=== PATIENT | female | born 1940 | race African-American/Black ===

== ENCOUNTER 2016-03-07 11:25 | Inpatient (IN) | payer OTHER, BC ==
[~2016-03-07] VITALS: Ht 172.7 cm; Wt 65.6 kg
--- NOTE | ~2016-03-07 | 2DMMODE ---
[facility] [place] [address] 2 D/M-MODE ECHOCARDIOGRAM Name: TRES HUANG Room #: 439-P [facility] IN [facility]#: [id number] Admission: 03/07/16 Attend Phys: Nathalie Peñaloza MD Discharge: Date of : 38 Date of Service: 03/08/16 0924 Report #: [id number] THIS REPORT FOR: //name// Transthoracic Echocardiography Ordering physician: Nathalie Peñaloza Referring physician: Mirta Rowan My N. Rugby League Footballer: MECHELLE Cantu Indications/History: TIA, HTN, HLP. BP: 139 / HR: 52bpm Height: 67in Weight: 143.7lb 95 Study data: M-mode, complete 2D, complete spectral Doppler, and color Doppler. Location: Echo laboratory. Routine. Image quality was good. The parasternal window was low, thus no M-mode measurements were recorded. Intravenous contrast (agitated saline) was administered. 2D measurements Normal Normal LVID ED 39.5mm 36-57 IVS ED 11.5mm 6-11 LVID ES 26.2mm 23-40 LVPW ED 12mm 6-11 LA volume 27ml/m2 16-28 AoRoot diam 27.3mm 21-37 index ED LVOT diameter 18-23 Findings: Left ventricle: The cavity size was normal. Wall thickness was increased in a pattern of mild LVH. Systolic function was normal. The estimated ejection fraction was in the range of 60% to 65%. Wall motion was normal. Right ventricle: The cavity size was normal. Systolic function was normal. Right atrium: The atrium was at the upper limits of normal in size. Left atrium: The atrium was normal in size. Volume index: 27ml/m2 (S). [address] [address] 2 D/M-MODE ECHOCARDIOGRAM Name: TRES HUANG Room #: 439-P [facility] IN M.R.#: [id number] Admission: 03/07/16 Attend Phys: Nathalie Peñaloza MD Discharge: Date of : 38 Date of Service: 03/08/16 0924 Report #: [id number] Atrial septum: No defect or patent foramen ovale was identified. Aortic valve: Trileaflet; mildly thickened, mildly calcified leaflets. Doppler: There was no stenosis. Mild regurgitation. Peak velocity: 142.2cm/s (S). Mitral valve: Mildly calcified annulus. Doppler: There was no evidence for stenosis. Mild regurgitation. Peak E-wave velocity: 72.9cm/s. Peak gradient: 2.1mm Hg (D). Peak A-wave velocity: 120.4cm/s. Tricuspid valve: Structurally normal valve. Doppler: There was no evidence for stenosis. Mild regurgitation. Regurgitant peak velocity: 296.4cm/s. Peak RV-RA gradient: 35mm Hg (S). Pulmonic valve: Structurally normal valve. Doppler: There was no evidence for stenosis. No regurgitation. Pericardium: There was no pericardial effusion. Aorta: Aortic root: The aortic root was normal in size. Pulmonary artery: Systolic pressure was estimated to be 40mm Hg. Diastolic function: Doppler parameters are consistent with abnormal left ventricular relaxation (grade 1 diastolic dysfunction). Systemic veins: Inferior vena cava: The vessel was normal in size; the respirophasic diameter changes were in the normal range (= 50%). Conclusions 1. Left ventricle: The cavity size was normal. Wall thickness was increased in a pattern of mild LVH. Systolic function was normal. The estimated ejection fraction was in the range of 60% to 65%. 2. Aortic valve: Trileaflet; mildly thickened, mildly calcified leaflets. Mild regurgitation. 3. Mitral valve: Mildly calcified annulus. Mild regurgitation. 4. Tricuspid valve: Structurally normal valve. Mild regurgitation. 5. Pulmonary arteries: Systolic pressure was estimated to be 40mm Hg. <ELECTRONICALLY SIGNED> By: Emile Beltran MD 03/08/16 1029 0924 1029 Emile Beltran MD /zofia
--- NOTE | ~2016-03-07 | EKG ---
[place] [address] [facility] [place] [address] ELECTROCARDIOGRAM REPORT Name: TRES HUANG [id number] Admission: 03/07/16 Attend Phys: Discharge: Date of : 38 Report #: [id number] THIS REPORT FOR: //name// [facility] ED Test Date: 2016-03-07 Test Time: 11:51:53 Pat Name: TRES HUANG Department: Room: Gender: F Merchandise Displayer: Bebo SHARMA : 1940 Requested By: Awa Angel Order Number: [id number] MD: Oli Donis Measurements Intervals [place] Rate: 57 P: 22 ID: 171 QRS: -4 QRSD: 91 T: 32 QT: 465 QTc: 453 Interpretive Statements Sinus Bradycardia Otherwise no significant abnormality No previous ECG available for comparison Electronically Signed On 03-07-2016 13:28:43 REFINERY OPERATOR HELPER by Oli Donis [email or web address] <ELECTRONICALLY SIGNED> By: Oli Donis MD, [facility] 03/07/16 1328 1151 1151 Oli Donis MD, FACC /EPI
[~2016-03-07 11:25] MED LIST: AGGRENOX CAPSU1 EACH PO; ALLEGRA180 MG PO; ALLEGRA30 MG PO; ALPRAZOLAM PO; AMLODIPINE PO; ENALAPRIL; FISHOIL PO; GLUCOSAMINE &1 EACH PO; LIPITOR PO; LIPITOR20 MG PO; LOPRESSOR100 MG PO; LOPRESSOR25 PO; METAMUCIL PAC1 UDPK1 PO; MULTI FOR HER400 MCG PO; NORVASC 5 MG TAB5 MG PO; PRILOSEC PO; SENNA PO; VASOTEC5 MG PO; ZOLOFT PO
[2016-03-07 11:27] VITALS: BP 140/97
[2016-03-07 12:00] LABS: BASOPHILS 0.5 % (0.0-2.0); EOSINOPHILS 5.2 % (0.0-3.0); HEMATOCRIT 37.8 % (37.0-47.0); HEMOGLOBIN 12.5 gm/dL (12.0-15.0); LYMPHOCYTES 30.3 % (24.0-44.0); MCH 31.9 pg (26.0-34.0); MCV 96.7 fL (80.0-100.0); MONOCYTES 7.3 % (1.0-8.0); PLATELET COUNT 221 thou/uL (150-400); POLYS 56.7 % (36.0-66.0); RBC 3.91 mil/uL (4.20-5.00); RDW 14.4 % (10.5-14.5); WBC 5.3 thou/uL (4.0-11.0)
[2016-03-07 12:02] LABS: MANUAL DIFF NO
[2016-03-07 12:14] LABS: INR 1.2; PROTIME 12.5 Seconds (9.3-11.4)
[2016-03-07 12:16] LABS: ANION GAP 8 mmol/L (7-16); BUN 15 mg/dL (7-18); CALCIUM 9.7 mg/dL (8.5-10.1); CHLORIDE 102 mmol/L (98-107); CO2 30 mmol/L (21-32); GLUCOSE 84 mg/dL (70-99); POTASSIUM 3.3 mmol/L (3.5-5.1); SODIUM 140 mmol/L (136-145)
[2016-03-07 12:21] LABS: ALBUMIN 3.7 g/dL (3.4-5.0); ALKALINE PHOSPHATASE 70 U/L (46-116); SGOT 20 U/L (15-37); SGPT 18 U/L (30-65); TOTAL BILIRUBIN 0.4 mg/dL (<0.1-1.0); TOTAL PROTEIN 8.4 g/dL (6.4-8.2); TROPONIN-I < 0.04 ng/mL (<0.04-0.07)
[2016-03-07 14:43] VITALS: BP 154/87
[2016-03-07 15:00] VITALS: BP 139/98
[2016-03-07 20:22] VITALS: BP 129/82
[2016-03-07] MEDS ORDERED: XALATAN2.5 ML OPHTHALMIC ×2 (20:51→21:06)
[2016-03-08] VITALS (8 sets, daily range): BP systolic 103–139; BP diastolic 71–95
[2016-03-08 02:03] LABS: CHOLESTEROL 155 mg/dL (<200); HDL CHOLESTEROL 53 mg/dL (>40); LDL CHOLESTEROL 89 mg/dL (<100); TC:HDL 2.9 Ratio (Not establshd); TRIGLYCERIDE 65 mg/dL (<150); VLDL 13 mg/dL (<40)
[2016-03-08 02:07] LABS: ALBUMIN 3.1 g/dL (3.4-5.0); ALKALINE PHOSPHATASE 60 U/L (46-116); ANION GAP 6 mmol/L (7-16); BUN 13 mg/dL (7-18); CHLORIDE 105 mmol/L (98-107); CO2 29 mmol/L (21-32); CREATININE 0.8 mg/dL (0.6-1.3); GLUCOSE 90 mg/dL (70-99); MAGNESIUM 1.9 mg/dL (1.8-2.4); POTASSIUM 3.4 mmol/L (3.5-5.1); SERUM ASSESSMENT Clear; SGOT 18 U/L (15-37); SGPT 15 U/L (30-65); SODIUM 140 mmol/L (136-145); TOTAL BILIRUBIN 0.3 mg/dL (<0.1-1.0); TOTAL PROTEIN 6.9 g/dL (6.4-8.2); TROPONIN-I < 0.04 ng/mL (<0.04-0.07)
[2016-03-08 02:44] LABS: ABSOLUTE NEUTROPHILS 3.8 thou/uL (1.4-8.2); BASOPHILS 0.3 % (0.0-2.0); EOSINOPHILS 4.4 % (0.0-3.0); HEMATOCRIT 33.8 % (37.0-47.0); LYMPHOCYTES 23.6 % (24.0-44.0); MCH 31.5 pg (26.0-34.0); MCHC 32.4 % (28.0-37.0); MCV 97.2 fL (80.0-100.0); MONOCYTES 9.2 % (1.0-8.0); PLATELET COUNT 198 thou/uL (150-400); POLYS 62.5 % (36.0-66.0); RBC 3.48 mil/uL (4.20-5.00); WBC 6.2 thou/uL (4.0-11.0)
[2016-03-08 02:46] LABS: MANUAL DIFF NO
[2016-03-08 09:47] LABS: CHOLESTEROL 158 mg/dL (<200); HDL CHOLESTEROL 51 mg/dL (>40); LDL CHOLESTEROL 93 mg/dL (<100); TC:HDL 3.1 Ratio (Not establshd); TRIGLYCERIDE 73 mg/dL (<150); VLDL 15 mg/dL (<40)
[2016-03-08] MEDS ORDERED: ASPIR 8181 MG PO (16:52)
== END 2016-03-08 18:10 | disposition home health service (06) | DRG 69 ==
LOC: ER 11:25 → EROBS 13:03 → 4S 13:03 → EROBS 14:52 → 4S 15:06
PROVIDERS: Family Medicine; Nurse Practitioner; Physician Assistant; Psychiatry & Neurology Neurology
DX: G45.9 Transient cerebral ischemic attack, unspecified (principal); R47.01 Aphasia; I69.359 Hemiplegia and hemiparesis following cerebral infarction affecting unspecified side; K21.9 Gastro-esophageal reflux disease without esophagitis; M19.90 Unspecified osteoarthritis, unspecified site; E78.5 Hyperlipidemia, unspecified; M79.7 Fibromyalgia; I10 Essential (primary) hypertension; H40.9 Unspecified glaucoma; Z88.1 Allergy status to other antibiotic agents; Z91.041 Radiographic dye allergy status; Z88.0 Allergy status to penicillin; Z79.899 Other long term (current) drug therapy; Z86.718 Personal history of other venous thrombosis and embolism; Z79.82 Long term (current) use of aspirin
CPT/HCPCS: 10100

== ENCOUNTER 2019-04-02 16:48 | Inpatient (IN) | payer OTHER, BC ==
[~2019-04-02] VITALS: Ht 172.7 cm; Wt 72.6 kg
--- NOTE | ~2019-04-02 | HC ---
[facility] [place] [address] CONSULTATION Name: TRES HUANG Room #: 446-P ADM IN ..#: [id number] Admission: 04/02/19 Attend Phys: Heriberto Tavera MD Discharge: Date of : 38 Report #: [id number] THIS REPORT FOR: cc: GEORGE - Ioana family physician/PCP GEORGE - Ioana family physician/PCP Rafael Santana MD ~ CC: [facility] physician/PCP Heriberto Tavera DATE OF SERVICE: 04/06/2019 HISTORY OF PRESENT ILLNESS: The patient is an 79-year-old -[place] female who was admitted with acute mental status changes, having complaints of increased weakness over the past few days prior to admission. She was diagnosed with delirium secondary to urinary tract infection. CT of the brain showed no acute intracranial hemorrhage or large vessel territory infarction. She was placed on IV Rocephin. She does have a prior history of a CVA back in 2007 and has some speech difficulties that are related to that. She also notes some left-sided weakness as a result of that stroke. She is being evaluated for possible melanotic stools. We are seeing her in rehabilitation medicine consultation. PAST MEDICAL HISTORY: Includes TIA. She had a CVA in 2007. She notes some speech issues and apparently has had some left-sided weakness from CVA. History of hypertension, hyperlipidemia, and fibromyalgia. MEDICATIONS: Please see the full medication listing. SOCIAL HISTORY: Lives in a house alone. No steps utilized a cane versus walker. She does have daughters that are involved looking after her. REVIEW OF SYSTEMS: Did not offer any current complaints of chest pain, shortness of breath, or abdominal discomfort. PHYSICAL EXAMINATION: GENERAL: An 79-year-old -[place] female, in no obvious distress. VITAL SIGNS: Last recorded temperature 97.8, pulse 55, respirations 17, blood pressure 155/94. NEUROLOGIC: She is alert. She does have some obvious word finding difficulties, but otherwise can follow basic 1 step commands. Appears pleasant, cooperative. Facies appeared symmetric. No obvious focal upper extremity weakness. Lower extremity, she tends to move that right lower extremity a little bit better than the left lower extremity. I would grade her strength probably at 4-/5-4/5 right lower extremity and left lower extremity appeared somewhat weaker maybe a 3+/5. She was seen by physical therapy and during the last visit was noted to be mod assist with sit to stand. Gait was min assist [address] [address] CONSULTATION Name: TRES HUANG Room #: 446-P [facility] IN ..#: [id number] Admission: 04/02/19 Attend Phys: Heriberto Tavera MD Discharge: Date of : 38 Report #: [id number] some small steps with a front-wheeled walker. She was noted to have vpic-lq-[id number] cognitive deficits with moderate memory deficits. Occupational therapy has not evaluated her yet. ASSESSMENT: An 79-year-old -[place] female with the following problem list: 1. Toxic encephalopathy. 2. Urinary tract infection, which was treated. 3. Melanotic stools being further evaluated to see if she is having melanotic stools. 4. Hypertension. 5. Generalized debilitation with weakness. 6. Past history of cerebrovascular accident. She has some expressive language deficits. 7. History of deep venous thrombosis, status post inferior vena cava filter. 8. History of seizure. PLAN: Therapy evaluations are continuing. The patient is desiring to go directly home. At this point, I am uncertain if she would qualify for an acute [address] [place] [address] inpatient rehabilitation stay. Therapy evaluations are still underway. Note that case management is looking at skilled level options, which I think is a reasonable consideration as [address] [place] [address] beds are currently tight. Again, she is hoping to go directly home. We will need to see how she does in therapies today. We will be glad to follow along with you. By: 1157 1704 Rafael Santana MD /HARRIS
[~2019-04-02 16:48] MED LIST changes: +ASPIR 8181 MG PO; +XALATAN2.5 ML OPHTHALMIC
[2019-04-02 16:50] VITALS: BP 173/128
[2019-04-02 17:41] LABS: ABSOLUTE NEUTROPHILS 3.2 thou/uL (1.4-8.2); BASOPHILS 0.5 % (0.0-2.0); HEMATOCRIT 37.2 % (37.0-47.0); HEMOGLOBIN 12.2 gm/dL (12.0-15.0); LYMPHOCYTES 28.7 % (24.0-44.0); MCH 31.2 pg (26.0-34.0); MCHC 32.7 g/dL (28.0-37.0); MCV 95.5 fL (80.0-100.0); MONOCYTES 8.5 % (1.0-8.0); PLATELET COUNT 212 thou/uL (150-400); POLYS 57.3 % (36.0-66.0); RDW 13.6 % (10.5-14.5); WBC 5.6 thou/uL (4.0-11.0)
[2019-04-02 17:45] LABS: CALCIUM 9.1 mg/dL (8.5-10.1); CREATININE 0.8 mg/dL (0.6-1.0); POTASSIUM 3.8 mmol/L (3.5-5.1)
[2019-04-02 17:45] LABS: URINE BILIRUBIN NEGATIVE (Negative); URINE BLOOD NEGATIVE (Negative); URINE CLARITY CLEAR; URINE COLOR YELLOW; URINE GLUCOSE-RANDOM* NEGATIVE (Negative); URINE KETONES NEGATIVE (Negative); URINE NITRITE-REFLEX NEGATIVE (Negative); URINE PROTEIN (DIPSTICK) NEGATIVE (Negative); URINE UROBILINOGEN 0.2 E.U./dl (0.2-1.0)
[2019-04-02 17:50] LABS: URINE LEUKOCYTES-REFLEX 1+ (Negative)
[2019-04-02 17:51] LABS: ALBUMIN 3.6 g/dL (3.4-5.0); TOTAL BILIRUBIN 0.5 mg/dL (<0.1-1.0); TOTAL PROTEIN 8.6 g/dL (6.4-8.2)
[2019-04-02 17:53] LABS: CASTS None Seen /LPF (None Seen); CRYSTALS None Seen /LPF (None Seen); SQUAMOUS 0-3 Few /LPF (0-3); URINE RBC None Seen /HPF (0-2)
[2019-04-02 17:54] LABS: BACTERIA-REFLEX >30 Many /HPF (None Seen); URINE WBC-REFLEX 0-5 Rare /HPF (0-5)
[2019-04-02 19:58] VITALS: BP 133/85
[2019-04-02 21:11] VITALS: BP 145/91
[2019-04-02 21:35] VITALS: BP 153/108
[2019-04-03 03:50] VITALS: BP 138/84
[2019-04-03 04:27] VITALS: BP 113/37
--- NOTE | 2019-04-03 05:17 | NUR ---
PT WAS ADMITTED TO THE UNIT FROM THE ER IN THE COMPANY OF HER DTR IN A STABLE CONDITION.PT C/O HEADACHE,MANAGED WITH MED.PT HAD A HARD FORMED BM,PRN MIRALAX GIVEN.PT UP WITH ASSIST,GAIT BELT AND WALKER TO [facility].PT HAS L SIDED WEAKNESS FROM PRIOR STROKE.PT ABLE TO MAKE HER NEEDS KNOWN.FALL PRECAUTIONS IN PLACE.CALL LIGHT WITHIN REACH.
[2019-04-03 07:09] VITALS: BP 127/81
[2019-04-03 08:19] LABS: FOLIC ACID 25.5 ng/mL (8.6-58.9)
--- NOTE | 2019-04-03 14:14 | NUR ---
Assess due to pt with 2 point high nutrition screening risk. Admit with delerium, UTI. Hx cva, htn. Pt able to have conversation but some difficulty with word finding. Appetite down at home briefly and now eating good lunch at time of visit. States may have lost some wt but could not recall quantity. Thin build. Poor teeth condition, no longer has upper dentures. Does not want diet modified however. Folate level wnl. Likes to drink Ensure-will order bid. Constipated and now on Miralax. Low nutrition risk with appropriate nutrition interventions in place.
--- NOTE | 2019-04-03 15:01 | NUR ---
met with patient who has hx of CVA and speaks with needing to find her words. She admits with AMS, Patient resides in home alone. All needs on one level. Dtr reports when she was well she uses a walker/cane in the home. Patient reports she strongly wants to return home at sc. THerapy evals in process. Dtr reports she works and her sister checks on patient frequestly but she will be sedentary then become weak. patient has been in skilled in past but does not want to tell senior java architect faxilities. Sp with dtr regarding possible need for skilled and patient resistant. Dtr reports patient needs to be able to toilet herself and use a walker for ambulation and be able to ambulate to bathroom. Dtr reports she will need to look at post acute list and sp with her sister. HH and snf list in room, casemgt following.
--- NOTE | 2019-04-03 15:27 | NUR ---
Assumed care of pt at 0700. Pt c/o headache and lower exremity pain. Prn pain meds administered. Supplement added to diet. Call light within reach. Fall precautions in place. Will continue to monitor.
[2019-04-03 16:49] VITALS: BP 126/77
[2019-04-03 20:40] VITALS: BP 139/84
--- NOTE | 2019-04-04 03:28 | NUR ---
PT WAS OBSERVED SITTING UP IN THE RECLINER IN HER ROOM EATING HER DINNER AT START OF SHIFT.PT C/O JESUS ON HER HEAD,MANGED WITH MED.PT UP WITH ASSIST X1 TO BSC.NO BM NOTED SO FAR.PT HAS L SIDED WEAKNESS,ABLE TO FEED SELF.PT RESTING ON HER BED AT THIS TIME.FALL PRECAUTIONS IN PLACE,CALL LIGHT WITHIN REACH.
[2019-04-04 04:00] VITALS: BP 148/89
[2019-04-04 06:26] LABS: ABSOLUTE NEUTROPHILS 2.8 thou/uL (1.4-8.2); BASOPHILS 0.4 % (0.0-2.0); EOSINOPHILS 5.9 % (0.0-3.0); HEMOGLOBIN 11.2 gm/dL (12.0-15.0); MCH 30.7 pg (26.0-34.0); MONOCYTES 7.8 % (1.0-8.0); PLATELET COUNT 199 thou/uL (150-400); POLYS 55.9 % (36.0-66.0); RBC 3.64 mil/uL (4.20-5.00); RDW 13.8 % (10.5-14.5); WBC 5.1 thou/uL (4.0-11.0)
[2019-04-04 06:39] LABS: CALCIUM 8.9 mg/dL (8.5-10.1); CREATININE 0.9 mg/dL (0.6-1.0); MAGNESIUM 1.9 mg/dL (1.8-2.4); POTASSIUM 3.8 mmol/L (3.5-5.1)
[2019-04-04 07:33] VITALS: BP 148/92
[2019-04-04 17:34] VITALS: BP 133/80
--- NOTE | 2019-04-04 18:42 | NUR ---
PT is A&OX2 ( PERSON AND PLACE), PT is confused at time, pt is continuing iv abx, and pain management, pt's vs are stable, pt gets up to chair for dinner, pt is relaxing now.
[2019-04-04 21:25] VITALS: BP 134/88
--- NOTE | 2019-04-05 02:23 | NUR ---
PT WAS OBSERVED SITTING UP IN THE RECLINER IN HER ROOM STILL EATING DINNER AT THE START OF SHIFT.PT C/O PAIN ON HER HEAD AND HAND,MANAGED WITH MED.PT UP TO BSC WITHH ASSIST X2.NO BM NOTED SO FAR THIS SHIFT.PT RESTING COMFORTABLY ON HER BED AT THIS TIME.FALL PRECAUTIONS IN PLACE,CALL LIGHT WITHIN REACH.
[2019-04-05 05:00] VITALS: BP 119/78
[2019-04-05 09:26] VITALS: BP 139/98
[2019-04-05 12:02] LABS: HEMATOCRIT 37.2 % (37.0-47.0); HEMOGLOBIN 12.1 gm/dL (12.0-15.0); MCHC 32.5 g/dL (28.0-37.0); MCV 95.3 fL (80.0-100.0); RBC 3.9 mil/uL (4.20-5.00); RDW 13.7 % (10.5-14.5); WBC 6.5 thou/uL (4.0-11.0)
[2019-04-05 12:15] LABS: CREATININE 0.9 mg/dL (0.6-1.0); MAGNESIUM 1.9 mg/dL (1.8-2.4); POTASSIUM 3.5 mmol/L (3.5-5.1)
[2019-04-05 18:49] VITALS: BP 146/90
[2019-04-05 19:58] VITALS: BP 141/73
--- NOTE | 2019-04-05 19:58 | NUR ---
PT ALERT AND ORIENTED TIMES FOUR WITH PERIODS OF CONFUSION. VSS, PT DNIES PAIN/SOA AT THIS TIME. PT TOLERATES MEDS AND MEALS. PT SLOWLY PROGRESSING TOWRADS POC GOALS.
--- NOTE | 2019-04-05 22:57 | NUR ---
PT TRANSFERRED FROM RM 207. PT SETTLED IN ROOM.PT IS ALERT AND ORIENTED. ORIENTED TO CALL LIGHT USE. PT IS [place] AND LEGALLY BLIND. FALL PREC IN PLACE. PT HAS A CONGESTED COUGH,PLACED ON 3L/NC. PT DENIES PAIN AT REST.DRINKING WATER. R ARM BRUISING NOTED. LS CLEAR TO DIMINISHED. SCDS IN PLACE.WILL CONTINUE WITH POC.
--- NOTE | 2019-04-06 03:45 | NUR ---
VSS-AFEBRILE. LUNGS CLEAR-ROOM AIR. ORIENTED TO PERSON AND PLACE, WITH OCCASIONAL FORGETFULNESS. LEFT SIDE REMAINS WEAK. C/O STOMACH ACHE WITH NO N/V PRESENT. PO PAIN MEDICATION PROVIDED COMPLETE RELIEF OF PAIN. BS ARE HYPOACTIVE, NO REPORTS OF FLATUS. MULTIPLE EPISODES OF URINARY INCONTINENCE, CHANGED NEEDED AND APPLIED BARRIER CREAM. TURNED EVERY TWO HOURS AND OFFERED HYDRATION FOR COMFORT. FALL PRECAUTIONS IN PLACE, CALLS APPROPRIATELY WITH ANY NEEDED ASSISTANCE.
[2019-04-06 05:05] VITALS: BP 158/112
[2019-04-06 08:15] VITALS: BP 155/94
[2019-04-06 10:44] LABS: HEMATOCRIT 39.1 % (37.0-47.0); HEMOGLOBIN 12.8 gm/dL (12.0-15.0); MCH 31.2 pg (26.0-34.0); MCHC 32.8 g/dL (28.0-37.0); MCV 95.2 fL (80.0-100.0); RBC 4.11 mil/uL (4.20-5.00); RDW 13.5 % (10.5-14.5); WBC 6.8 thou/uL (4.0-11.0)
[2019-04-06 10:49] LABS: CALCIUM 9.4 mg/dL (8.5-10.1); POTASSIUM 3.6 mmol/L (3.5-5.1)
--- NOTE | 2019-04-06 12:09 | NUR ---
PT CARE ASSUMED AT 0700. A&Ox2-3 TO PERSON, PLACE AND TIME. STANDBY ASSIST x2.INCONTINENT TO BLADDER AND AWAITING A BM TO SEND OFF A STOOL SAMPLE FOR OCCULT BLOOD. PT HAS LEFT SIDED WEAKNESS TO TO A PAST TIA. BOWELS ARE HYPOACTIVE. PT IS FROM HOME. MIRALAX WAS CHANGED TO BID FROM PRN. IV IS PATENT WITH NO REDNESS OR EDEMA. FALL PROTOCOLL IN PLACE WITH CALL LIGHT IN REACH. WILL CONTINUE TO MONITOR.
--- NOTE | 2019-04-06 16:43 | NUR ---
CM CALLED PT'S DTR TO INQUIRE ABOUT SNF PREFERENCE. HER VM WAS FULL. CM TO FOLLOW UP.
[2019-04-06 17:00] VITALS: BP 139/83
[2019-04-06 21:00] VITALS: BP 160/90
--- NOTE | 2019-04-07 03:38 | NUR ---
ASSUMED CARE OF PT @1900 PT ASSESSED AT START OF SHIFT A&0 X3 UP WITH ASSISTX1 TO BSC. PT HAD 2 BM'S THIS SHIFT. HELD NIGHT TIME MIRALAX. PT SITING IN CHAIR AND ATE EVENING TIME DINNER ON THERE. REQUIRES EXTRA TIME WHILE EATING BUT FEEDS SLF WELL AND ATE 90% OF DINNER. NIGHT TIME MEDS GIVEN AND PT ROLO IT WELL. TYL GIVENX1 THIS SHIFT. FALL PREC IN PLACE AND WILL CONT WITH POC TILL EOS.
[2019-04-07 05:30] VITALS: BP 155/84
[2019-04-07 05:34] LABS: CREATININE 0.9 mg/dL (0.6-1.0); MAGNESIUM 2.2 mg/dL (1.8-2.4); POTASSIUM 3.6 mmol/L (3.5-5.1)
[2019-04-07 06:04] LABS: HEMATOCRIT 36.5 % (37.0-47.0); HEMOGLOBIN 11.9 gm/dL (12.0-15.0); MCH 31.1 pg (26.0-34.0); MCHC 32.5 g/dL (28.0-37.0); MCV 95.6 fL (80.0-100.0); RBC 3.82 mil/uL (4.20-5.00); RDW 13.7 % (10.5-14.5); WBC 7.2 thou/uL (4.0-11.0)
[2019-04-07 08:11] VITALS: BP 136/92
--- NOTE | 2019-04-07 16:12 | NUR ---
MIRANDA reviewed chart and spoke with nursing and attending physician. Pt [facility] to [facility] from and is medically stable for discharge today. SW spoke with [facility] therapy manager, who states they are not able to accept pt due to bed availability. Pt does appear to have a qualifying rehab dx. MIRANDA met with pt at bedside to discuss discharge plan. SW discussed alternate inpt acute rehab facilities or SNFs. Pt is not willing to consider any other facilities. Pt states she wants to go home. Pt is agreeable with HH. Pt agreeable with pt contacting her dtr, Collette, to discuss discharge plan. Pt states she does not have house keys to get into her home. SW spoke with Collette via phone to provide update. Per Collette, pt is not able to return home unless, pt is able to ambulate the distance needed to go from her room to the bathroom. SW explained that pt cannot be forced to go to a facility. Pt's dtr verbalized understanding. Pt to work with therapy today. Psych consult ordered to evaluate pt. Therapy is recommedning post-acute placement. MIRANDA updated attending physician and pt's dtr. SW is following to assist as needed with discharge planning.
--- NOTE | 2019-04-07 18:53 | NUR ---
ASSUMED PATIENT CARE AT 0700. PATIENT IS A&OX3. PATIENT SEEMS TO BE CONFUSED ON WHAT THE NEXT STEP WILL BE. PSYCH CONSULT COMPLETED ALONG WITH PT/OT EVALUATION, POSSIBLY GOING TO REHAB BUT PATIENT DOESN'T WANT TO GO TO A DIFFERENT FACILITY. PATIENT IS UP TO THE BSC BUT NEEDS NURSE ASSITANCE DUE TO LEFT SIDE HEMIPARESIS. PATIENT REFUSED THE LACTULOSE AND AGGRENOX THIS AM. PATIENT STATES THE ASPIRIN WAS ALL SHE NEEDED AND THE LATULOSE WOULD MAKE HER HAVE TO MANY BM'S. PATIENT DID HAVE SEVERAL BM'S THROUGHOUT THE NIGHT AND CONSTIPATION IS NO LONGER AN ISSUE. PATIENT NEEDS A LOT OF REDIRECTING TO GET THE TASK AT HAND ACCOMPLISHED. PATIENT DOES CALL FOR HELP WHEN NEEDED BUT THE URGENCY TO VOID CAUSES HER TO HAVE AN ACCIDENT. FALL PRECAUTIONS ARE IN PLACE, CALL LIGHT WITHIN REACH.
--- NOTE | 2019-04-07 19:56 | NUR ---
I AGREE WITH NURSING ASSESSMENT AND NURSING NOTE DONE BY FRITZ/EDMUND.
[2019-04-07 20:40] VITALS: BP 142/95
--- NOTE | 2019-04-08 05:53 | NUR ---
Assumed pt care at 1900. A/OX3 with forgetfulness noted easily redirected. VSS. C/o pain to kurt knees/arms medicated with [place] with relief reported. Up with AX1,RW/GB unsteady gait d/t left side weakness. Fall precautions in place,reminded to call for help before getting OOB and doing so.
--- NOTE | 2019-04-08 10:10 | NUR ---
MIRANDA reviewed chart and spoke with nursing. Psych consult completed yesterday. Pt is able to make her own decisions. Recommendation made for pt to go to post-acute care. MIRANDA met with pt at bedside this morning. Pt is adamant about going home and not going to a post-acute facility. SW discussed HH services. Pt is agreeable with HH services. SW verified pt's home address and phone number. Options for HH agencies discussed. No preference voiced. MIRANDA discussed transportation home with pt. Pt states she is not sure if her dtr, Collette, will be able to pick her up later today. Pt states she does not have her house keys. SW explained that transportation can be arranged, if her dtr can meet her at the home or bring the house keys to the hospital. Pt states she does not think she can discharge today because of the winter weather. MIRANDA left voice message for pt's dtr, Collette, to provide update and discuss discharge. Awaiting call back at this time. MIRANDA is following to assist as needed with discharge planning.
--- NOTE | 2019-04-08 12:32 | EKG ---
[facility] [place] [address] ELECTROCARDIOGRAM REPORT Name: TRES HUANG Room #: 406-P ADM IN M.R.#: [id number] Admission: 04/02/19 Attend Phys: Heriberto Tavera MD Discharge: Date of : 38 Report #: [id number] THIS REPORT FOR: cc: GEORGE - No family physician/PCP FAM - No family physician/PCP Oli Donis MD [facility] THIS REPORT FOR: //name// [facility] ED Test Date: 2019-04-02 Test Time: 16:58:30 Pat Name: TRES HUANG Department: Room: 446 Gender: F Manager Supply: [facility] : 1940 Requested By: Gerardo Pang Order Number: [id number] MD: Oli Donis Measurements Intervals [place] Rate: 64 P: 35 MT: 175 QRS: -1 QRSD: 89 T: 36 QT: 426 QTc: 440 Interpretive Statements Sinus rhythm No significant abnormality Compared to ECG 09/01/2016 22:00:40 No significant changes Electronically Signed On 04-03-2019 8:56:12 PEDIATRIC NEUROLOGIST by Oli Donis [email or web address] <ELECTRONICALLY SIGNED> By: Oli Donis MD, FAC 04/03/19 0856 1658 1658 Oli Donis MD, [facility] /EPI
[2019-04-08 14:04] VITALS: BP 142/95
[2019-04-08 14:58] VITALS: BP 142/95
--- NOTE | 2019-04-08 15:23 | NUR ---
PT IS AOX3, VSS, GENERALIZED PAIN CONTROLLED WITH ORAL ANALGESIC. PT HAD 2 BMS TODAY AND REPORTS SHE FEELS RELIEVED. PT TOLERATING DIET WELL, WORKED WITH PHYSICAL THERAPY. PT IS SCHEDULED TO GET PICKED UP TODAY BY [facility] [facility] TO GO HOME. PT RECEIVED DISCHARGE INSTRUCTIONS, VERBALIZED UNDERSTANDING. NEIGHBOR WILL BE AT HER HOME TO ASSIST HER. IV REMOVED, FALL PRECAUTION IN PLACE. CALL LIGHT IN REACH. WILL CONTINUE TO MONITOR.
--- NOTE | 2019-04-09 09:08 | NUR ---
LATE ENTRY: SW placed call to [facility] to make hotline report due to pt going home and not agreeable with post-acute placement as recommended by care team. SW spoke with Anna in intake at Elder Abuse Hotline. Call made at 1610. Concerns voiced about pt's inability to care for self and possible lack of family support. SW is available to assist should needs arise.
== END 2019-04-08 16:11 | disposition home health service (06) | DRG 689 ==
LOC: ER 16:48 → EROBS 20:00 → 4S 20:00 → 4N 04-07 07:30
PROVIDERS: Emergency Medicine; Internal Medicine; Nurse Practitioner; ADMIT Hospitalist
DX: N39.0 Urinary tract infection, site not specified (principal); G92 Toxic encephalopathy; H40.9 Unspecified glaucoma; K59.00 Constipation, unspecified; F32.9 Major depressive disorder, single episode, unspecified; F41.9 Anxiety disorder, unspecified; M25.511 Pain in right shoulder; K21.9 Gastro-esophageal reflux disease without esophagitis; M19.90 Unspecified osteoarthritis, unspecified site; M79.7 Fibromyalgia; E78.5 Hyperlipidemia, unspecified; H04.129 Dry eye syndrome of unspecified lacrimal gland; I10 Essential (primary) hypertension; Z86.73 Personal history of transient ischemic attack (TIA), and cerebral infarction without residual deficits; Z95.828 Presence of other vascular implants and grafts; Z86.718 Personal history of other venous thrombosis and embolism; Z79.01 Long term (current) use of anticoagulants; Z79.82 Long term (current) use of aspirin; Z79.899 Other long term (current) drug therapy; Z88.0 Allergy status to penicillin; Z91.041 Radiographic dye allergy status
CPT/HCPCS: 10091; 10195

== ENCOUNTER 2019-10-09 10:34 | Emergency (ER) | payer OTHER, BC ==
[~2019-10-09] VITALS: Ht 175.3 cm; Wt 71.8 kg
[2019-10-09 11:43] LABS: ABSOLUTE NEUTROPHILS 3.5 thou/uL (1.4-8.2); BASOPHILS 0.5 % (0.0-2.0); EOSINOPHILS 4.6 % (0.0-3.0); HEMATOCRIT 36.4 % (37.0-47.0); HEMOGLOBIN 12.2 gm/dL (12.0-15.0); LYMPHOCYTES 22.8 % (24.0-44.0); MCH 31.9 pg (26.0-34.0); MCHC 33.5 g/dL (28.0-37.0); MCV 95.3 fL (80.0-100.0); MONOCYTES 8.7 % (1.0-8.0); PLATELET COUNT 209 thou/uL (150-400); POLYS 63.4 % (36.0-66.0); RBC 3.82 mil/uL (4.20-5.00); RDW 14.4 % (10.5-14.5); WBC 5.6 thou/uL (4.0-11.0)
[2019-10-09 12:04] LABS: CALCIUM 9.5 mg/dL (8.5-10.1); CREATININE 0.9 mg/dL (0.6-1.0); POTASSIUM 3.8 mmol/L (3.5-5.1)
[2019-10-09 12:20] LABS: URINE BILIRUBIN NEGATIVE (Negative); URINE BLOOD NEGATIVE (Negative); URINE CLARITY CLEAR; URINE COLOR YELLOW; URINE GLUCOSE-RANDOM* NEGATIVE (Negative); URINE KETONES NEGATIVE (Negative); URINE LEUKOCYTES-REFLEX TRACE (Negative); URINE NITRITE-REFLEX NEGATIVE (Negative); URINE PROTEIN (DIPSTICK) NEGATIVE (Negative); URINE UROBILINOGEN 0.2 E.U./dl (0.2-1.0)
[2019-10-09 16:31] VITALS: BP 132/88
--- NOTE | 2019-10-10 11:36 | EKG ---
[facility] [place] [address] ELECTROCARDIOGRAM REPORT Name: TRES HUANG Room #: DEP [facility]#: [id number] Admission: 10/09/19 Attend Phys: Discharge: 10/09/19 Date of : 38 Report #: [id number] THIS REPORT FOR: cc: FAM - Family physician unknown FAM - Family physician unknown Agustin Morales MD ~ THIS REPORT FOR: //name// [facility] ED Test Date: 2019-10-09 Test Time: 14:21:36 Pat Name: TRES HUANG Department: Room: Gender: F Assistant Superintendent: no : 1940 Requested By: Gerardo Pang Order Number: [id number] MD: Agustin Morales Measurements Intervals [place] Rate: 80 P: 41 DE: 176 QRS: -26 QRSD: 89 T: 24 QT: 402 QTc: 464 Interpretive Statements Sinus rhythm Probable left atrial enlargement Borderline left axis deviation Borderline low voltage, extremity leads Compared to ECG 04/02/2019 16:58:30 No significant changes Electronically Signed On 10-10-2019 11:36:29 CDT by Agustin Morales [email or web address] <ELECTRONICALLY SIGNED> By: Agustin Morales MD 10/10/19 1136 1421 1421 Agustin Morales MD /EPI
== END 2019-10-09 17:39 | disposition home or self-care (01) ==
LOC: ER 10:34
PROVIDERS: Emergency Medicine
DX: R51 Headache (principal); R53.1 Weakness; I10 Essential (primary) hypertension; M79.7 Fibromyalgia; E78.5 Hyperlipidemia, unspecified; Z88.1 Allergy status to other antibiotic agents; Z88.0 Allergy status to penicillin; Z79.899 Other long term (current) drug therapy; Z79.82 Long term (current) use of aspirin; Z86.73 Personal history of transient ischemic attack (TIA), and cerebral infarction without residual deficits; Z86.718 Personal history of other venous thrombosis and embolism